=== PATIENT | female | born 1975 | race Caucasian/White ===

== ENCOUNTER 2017-02-06 20:44 | Emergency (ER) | payer BC ==
[2017-02-06] MEDS ORDERED: DIPHENHYDRAMINE HCL IV 50 MG/ML VIAL IVP ONE (22:25)
[2017-02-06] MEDS ORDERED: PROMETHAZINE HCL 25 MG/ML VIAL IVP ONE (22:25)
[2017-02-06] MEDS ORDERED: PANTOPRAZOLE SODIUM IV 40 MG VIAL IVP ONE (22:26)
--- NOTE | 2017-02-06 22:28 | Emergency Department Record ---
History of Present Illness - General Chief Complaint: Abdominal Pain Stated Complaint: VOMITTING,ABDOMINAL PAIN Time Seen by Provider: 02/06/17 22:25 Source: Patient, Family Mode of Arrival: Ambulatory Limitations: No limitations - History of Present Illness Initial Comments: 41 yo female presents with 2 days of vomiting. The patient has a long history of gastroparesis. She follows with a GI specialist at the [facility]. The last two days she has had nausea, vomiting and cramps. She has epigastric discomfort. No fevers. No diarrhea. No rash. She has been scoped in the last year and it demonstrated gastritis. No blood in the the vomit or stools. MD Complaint: Abdominal pain, Other (Nause and vomiting) Onset/Timin -: Days(s) (2) Location: Diffuse Radiation: Epigastric Severity: Severe Quality: Cramping Consistency: Constant Improves With: Nothing Worsens With: Eating, Vomiting Context: Other Associated Symptoms: Vomiting - Related Data LMP Date: 01/23/17 Patient : No Previous Rx's Medication Instructions Recorded Dicyclomine HCl [Bentyl] 10 mg PO Q8H #10 cap 07/01/15 Hyoscyamine Sulfate [Levsin-Sl] 0.25 mg SL Q6H PRN #20 tab.subl 07/04/15 Famotidine [Pepcid] 20 mg PO BID #60 tablet 07/05/15 Hydrocodone/Acetaminophen [Condon 1 tab PO Q8H PRN #15 tab 07/05/15 7.5mg/325mg] Ondansetron [Zofran Odt] 8 mg PO Q8HR #15 tab.rapdis 07/05/15 Ondansetron [Zofran Odt] 4 mg PO Q8H #30 tab.rapdis 02/07/17 Ranitidine HCl [Zantac] 150 mg PO BID #60 tablet 02/07/17 Allergies Allergy/AdvReac Type Severity Reaction Status Date / Time codeine Allergy Severe HIVES Verified 07/01/15 16:59 Travel Screening - Travel/Exposure Within Last 30 Days Have you traveled within the last 30 days?: No - Travel Symptoms Symptom Screening: None Review of Systems Constitutional: Denies: Chills, Fever, Malaise, Weakness Eyes: Denies: Eye discharge ENT: Denies: Congestion, Throat pain Respiratory: Denies: Cough, Dyspnea, Hemoptysis, Stridor, Wheezes Cardiovascular: Denies: Chest pain, Palpitations, Syncope Endocrine: Denies: Fatigue Gastrointestinal: Reports: Abdominal pain, Nausea, Vomiting. Denies: Constipation, Diarrhea, Hematemesis, Hematochezia, Melena Genitourinary: Denies: Discharge, Dysuria, Urgency Musculoskeletal: Denies: Arthralgia, Back pain, Myalgia Skin: Denies: Bruising, Change in color, Rash Neurological: Denies: Confusion, Headache, Numbness, Weakness Psychiatric: Denies: Anxiety Hematological/Lymphatic: Denies: Blood Clots, Easy bleeding, Easy bruising, Swollen glands Past Medical History - SOCIAL HISTORY Smoking Status: Heavy tobacco smoker (>10/day) Alcohol Use: None Drug Use: None - RESPIRATORY Hx Respiratory Disorders: No - CARDIOVASCULAR Hx Cardio Disorders: No - NEURO Hx Neuro Disorders: No - GI Hx GI Disorders: Yes Hx Abdominal Pain: Yes Hx Reflux: Yes Hx Nausea/Vomiting: Yes Hx Ulcer: Yes Comment:: BOTOX ON PYLORIC SPHINCTER 11/2016 - Hx Genitourinary Disorders: No - ENDOCRINE Hx Endocrine Disorders: No - MUSCULOSKELETAL Hx Musculoskeletal Disorders: No - PSYCH Hx Psych Problems: No - HEMATOLOGY/ONCOLOGY Hx Hematology/Oncology Disorders: No Family Medical History Any Significant Family History?: Yes Family Hx Comment (NOT TO BE USED IN PLACE OF ITEMS BELOW): Dad-pancreatitis Hx Alcohol Use: Father Hx Liver Disease: Father Physical Exam - General General Appearance: Alert, Oriented x3, Cooperative, No acute distress Limitations: No limitations - Head Head exam: Normal inspection - Eye Eye exam: Normal appearance, PERRL. negative: Conjunctival injection, Periorbital swelling, Scleral icterus - ENT ENT exam: Normal exam, Mucous membranes moist Ear exam: Normal external inspection Nasal Exam: Normal inspection Mouth exam: Normal external inspection Teeth exam: Normal inspection - Neck Neck exam: Normal inspection, Full ROM. negative: Tenderness - Respiratory Respiratory exam: Normal lung sounds bilaterally. negative: Respiratory distress - Cardiovascular Cardiovascular Exam: Regular rate, Normal rhythm, Normal heart sounds - GI/Abdominal GI/Abdominal exam: Soft, Tenderness (epigastric) - Rectal Rectal exam: Deferred - exam: Deferred - Extremities Extremities exam: Normal inspection, Full ROM, Normal capillary refill. negative: Tenderness - Back Back exam: Reports: Normal inspection, Full ROM. Denies: Muscle spasm, Rash noted, Tenderness - Neurological Neurological exam: Alert, Normal gait, Oriented X3 - Psychiatric Psychiatric exam: Normal affect, Normal mood - Skin Skin exam: Dry, Intact, Normal color, Warm Course Vital Signs 02/06/17 22:19 Temperature 97.9 F Pulse Rate 105 H Respiratory 20 Rate Blood Pressure 129/64 Pulse Ox 97 - Reevaluation(s) Reevaluation #1: 02/06/17 22:58 The CBC and CMP were reviewed No acute process 02/07/17 01:02 The patient is finishing her second liter of IVF She has not had any return of vomiting. She has been sleeping resting comfortably. We discussed the labs and vitals I do not recommend CT at this time with normal vitals and labs given the radiation exposure of CT Medical Decision Making - Lab Data Result diagrams: 02/06/17 22:25 02/06/17 22:25 Disposition Disposition: Discharge Clinical Impression: Abdominal pain, Gastroparesis Disposition: Home, Self-Care Condition: (1) Good Instructions: Gastroparesis (ED) Additional Instructions: Call your GI doctor for close follow up Return or be seen if you have any fever, uncontrolled vomiting or new concerns Prescriptions: Ondansetron [Zofran Odt] 4 mg PO Q8H #30 tab.rapdis Ranitidine HCl [Zantac] 150 mg PO BID #60 tablet Forms: Patient Portal Access Time of Disposition: 01:09 Quality - Quality Measures Quality Measures: N/A - Blood Pressure Screening Does Patient Have Any of the Following: No Blood Pressure Classification: Pre-Hypertensive BP Reading Systolic Measurement: 129 Diastolic Measurement: 64 Screening for High Blood Pressure: < Pre-Hypertensive BP, F/U Documented > [ [id number]] Pre-Hypertensive Follow-up Interventions: Referral to alternative/primary care provider.
[2017-02-06 22:40] LABS: BASO % 0.5 % (0-6); EOS % 3.1 % (0-6); GRAN % 60.5 % (47-80); HEMATOCRIT 35.9 % (35.0-47.0); HEMOGLOBIN 11.5 gm/dl (11.6-16.0); LYMPH % 27.2 % (16-45); MEAN CELL VOLUME 91.3 fl (81-97); MEAN PLATELET VOLUME 9.5 fl (7.4-10.4); MONO % 8.7 % (0-9); PLATELET COUNT 370 K/uL (130-400); RED BLOOD COUNT 3.93 M/uL (3.80-5.40); RED CELL DISTRIBUTION WIDTH 15.4 % (11.5-14.5); WHITE BLOOD COUNT W/O DIFF 8.7 K/uL (4.2-12.2)
[2017-02-06] MEDS: 0.9 % SODIUM CHLORIDE 1,000 ML BAG IV ONE (22:40)
[2017-02-06 22:41] LABS: MEAN CORPUSCULAR HEMOGLOBIN 29.2 pg (27-33)
[2017-02-06 22:50] LABS: BLOOD UREA NITROGEN 14 mg/dL (6-20); CREATININE 0.5 mg/dL (0.5-0.9); EST GLOMERULAR FILTRATION RATE > 60 mL/min
[2017-02-06 22:51] LABS: TOTAL PROTEIN 7.1 g/dL (6.6-8.7)
[2017-02-06 22:53] LABS: GLUCOSE,RANDOM 101 mg/dL (74-109)
[2017-02-06 22:55] LABS: ALBUMIN 4.4 g/dL (4.0-5.0); ALT/SGPT 9 U/L (<33); AST/SGOT 13 U/L (10.0-35.0); BILIRUBIN,DIRECT < 0.2 mg/dL (0-0.3)
[2017-02-06 22:56] LABS: ALKALINE PHOSPHATASE 50 U/L (35-104); LIPASE 22 U/L (13-60)
[2017-02-06 23:59] LABS: URINE APPEARANCE CLEAR; URINE BILIRUBIN NEGATIVE (NEGATIVE); URINE BLOOD NEGATIVE (NEGATIVE); URINE COLOR YELLOW; URINE GLUCOSE (UA) NEGATIVE (NEGATIVE); URINE KETONE NEGATIVE (NEGATIVE); URINE LEUKOCYTE ESTERASE NEGATIVE (NEGATIVE); URINE NITRITE NEGATIVE (NEGATIVE); URINE PROTEIN NEGATIVE (NEGATIVE); URINE UROBILINOGEN 0.2 E.U./dL (0.20 - 1.00)
[2017-02-07] MEDS ORDERED: KETOROLAC 30 MG/ML VIAL IVP ONE (00:12)
[2017-02-07] MEDS ORDERED: ACETAMINOPHEN 1,000 MG/100 ML BTL IVPB ONE (00:12)
[2017-02-07] MEDS ORDERED: MAGNESIUM HYDROXIDE/AL HYDROX 30 ML, LIDOCAINE VISC 2% 200 MG PO ONE ×2 (00:13)
[2017-02-07] MEDS: 0.9 % SODIUM CHLORIDE 1,000 ML BAG IV ONE (00:22)
== END 2017-02-07 01:18 | disposition home or self-care (01) ==
LOC: ER 20:44
DX: K31.84 Gastroparesis (principal); R10.13 Epigastric pain; R11.2 Nausea with vomiting, unspecified
CPT/HCPCS: 99284 ×2; 96365; 96375; 96361; 83690; 85025; 80076; 80048; 81003; 81025; J1885; C9113; J1200; J2550; J7030